=== PATIENT | male | born 1990 | race Caucasian/White ===

== ENCOUNTER 2020-07-08 09:37 | Emergency (ER) | payer OTHER ==
[~2020-07-08] VITALS: Ht 188 cm; Wt 81.4 kg
[2020-07-08 09:45] VITALS: BP 135/91
--- NOTE | 2020-07-08 10:13 | NUR ---
PT WAS WORKING TODAY AND TRIPPED AND FELL HITTING HIS HEAD ON A GAS CANISTER CAUSING A LACERATION ON HIS FOREHEAD. PT IS A&OX4, DENIES LOC OF USE OF BLOOD THINNERS. PT DENIES ANY NEUROLOGICAL SYMPTOMS AND IS NEUROLOGICALLY INTACT. BLEEDING CONTROLLED. RESTING ON KT OBANDO. CALL LIGHT WITHIN REACH.
[2020-07-08] MEDS ORDERED: LIDOCAINE 1%, 10ML INFIL ONE (10:30)
[2020-07-08] MEDS ORDERED: PLEASE ENTER ALLERGIES MC SCH (10:30)
--- NOTE | 2020-07-08 10:31 | NUR ---
DISCUSSED POSITIVE SUICIDE SCREENING QUESTIONS WITH EFRA FULLER. BARREL ENDSHAKE ADJUSTER STATES THAT PT DOES NOT NEED A SITTER AND WILL DISCUSS WITH PT.
[2020-07-08] MEDS ORDERED: LIDOCAINE-MPF 1%, 5ML ONE (10:48)
[2020-07-08] MEDS ORDERED: NEOSPORIN OINT. PKT 1 PACKET ONE (11:37)
--- NOTE | 2020-07-08 11:49 | NUR ---
PT DENIES SI/HI AT THIS TIME. STATES HE HAS A HX OF IT BUT HE STATES HE HAS A PLAN TO STAY SAFE AND IS HE HAS ANY THOUGHTS OR CONCERNS HE WILL RETURN TO ED. PT FRIEND AT BEDSIDE AND IS AWARE OF DISCUSSION. SPOKE W/ ALINA KRAUS WHO STATES PT IS OKAY TO DC AT THIS TIME.
== END 2020-07-08 11:51 | disposition home or self-care (01) ==
LOC: ED 10:22
DX: S01.01XA Laceration without foreign body of scalp, initial encounter (principal); W01.0XXA Fall on same level from slipping, tripping and stumbling without subsequent striking against object, initial encounter; Y93.89 Activity, other specified; Y92.69 Other specified industrial and construction area as the place of occurrence of the external cause; Y99.0 Civilian activity done for income or pay
CPT/HCPCS: 12011; 70486; 99284